=== PATIENT | female | born 1990 | race Caucasian/White ===

== ENCOUNTER 2017-03-06 06:15 | Outpatient (CLI) | payer SELFPAY ==
[~2017-03-06] VITALS: Ht 154.9 cm; Wt 51.8 kg
[2017-03-06 06:52] LABS: DAU SCREEN DISCLAIMER
[2017-03-06] MEDS ORDERED: TERBUTALINE 1 MG/ML, 1ML ONE (07:49)
[2017-03-06] MEDS ORDERED: TERBUTALINE 1 MG/ML, 1ML SQ ONE (08:00)
== END 2017-03-06 09:25 | disposition home or self-care (01) ==
LOC: LDOP 06:15
PROVIDERS: ATTEND Obstetrics & Gynecology
DX: O62.9 Abnormality of forces of labor, unspecified (principal); O60.03 Preterm labor without delivery, third trimester; Z3A.29 29 weeks gestation of pregnancy
CPT/HCPCS: 36415; 59025; 80307; 81003; 82731; 87086; 96372; 99201; J3105; G0463; G0479

== ENCOUNTER 2017-04-01 06:03 | Outpatient (CLI) | payer OTHER ==
[~2017-04-01 06:03] MED LIST: CLON0.5T PO; TRAZ100T15 PO
== END 2017-04-01 07:05 | disposition home or self-care (01) ==
LOC: LDOP 06:03
PROVIDERS: ATTEND Obstetrics & Gynecology
DX: O36.8130 Decreased fetal movements, third trimester, not applicable or unspecified (principal); O99.343 Other mental disorders complicating pregnancy, third trimester; F32.9 Major depressive disorder, single episode, unspecified; Z3A.32 32 weeks gestation of pregnancy
CPT/HCPCS: 59025; 81001; 99211; G0463

== ENCOUNTER 2017-04-28 15:50 | Emergency (ER) | payer OTHER ==
[~2017-04-28] VITALS: Ht 152.4 cm; Wt 58.0 kg
[2017-04-28] MEDS ORDERED: SODIUM CHLORIDE 0.9% 1,000 ML IV ONE (16:23)
[2017-04-28] MEDS ORDERED: SODIUM CHLORIDE FLUSH 10ML SYR IVF ONE (16:30)
[2017-04-28 16:50] LABS: HEMATOCRIT 27.1 % (34.6-47.8); HEMOGLOBIN 8.9 g/dL (11.7-16.4); WHITE BLOOD COUNT 7.9 x10^3/uL (3.4-10)
[2017-04-28 16:55] VITALS: BP 116/74
[2017-04-28 17:01] LABS: ASPARTATE AMINO TRANSFERASE 14 U/L (15-37); BLOOD UREA NITROGEN 5 mg/dL (7-18)
== END 2017-04-29 04:58 | disposition other institution (70) ==
LOC: ED 17:04
DX: O26.893 Other specified pregnancy related conditions, third trimester (principal); O99.013 Anemia complicating pregnancy, third trimester; R56.9 Unspecified convulsions; Z3A.37 37 weeks gestation of pregnancy
CPT/HCPCS: 36415; 71010; 80053; 81003; 82962; 83605; 85025; 85610; 85730; 93005

== ENCOUNTER 2017-04-28 17:17 | Inpatient (IN) | payer OTHER ==
[~2017-04-28] VITALS: Ht 152.4 cm; Wt 60.6 kg
[~2017-04-28 17:17] MED LIST changes: +DEXTROSE 50%, 50ML SYRINGE ONE; +METHYLERGONOVINE 0.2 MG/ML IM ONE; +VERAPAMIL 2.5 MG/ML, 2ML ONE
[2017-04-28] MEDS: LACTATED RINGERS 1,000 ML IV SCH (17:30)
[2017-04-28] MEDS ORDERED: LORazepam 2 MG/ML, 1ML ONE ×2 (17:35→17:50)
[2017-04-28] MEDS ORDERED: LORazepam 2 MG/ML, 1ML IVPush ONE ×2 (18:00)
[2017-04-28] MEDS ORDERED: LEVETIRACETAM 1,000 MG in SODIUM CHLORIDE 0.9% 100 ML IV ONE (18:30)
[2017-04-28] MEDS ORDERED: PLEASE ENTER HEIGHT AND WEIGHT MC SCH ×2 (18:30→19:00)
[2017-04-28] MEDS ORDERED: BETAMETHASONE 6 MG/ML, 5ML IM ONE ×2 (18:30→19:05)
[2017-04-28] MEDS ORDERED: LORazepam 2 MG/ML, 1ML IVPush PRN (18:30)
[2017-04-28 20:11] LABS: HIV 1&2 ANTIBODY SCREEN Nonreactive (Nonreactive); HIV-1 p24 ANTIGEN Nonreactive (Nonreactive)
[2017-04-28] MEDS ORDERED: PHENYTOIN SODIUM 1,000 MG in SODIUM CHLORIDE 0.9% 100 ML IV ONE (21:00)
[2017-04-28 21:14] LABS: HEMATOCRIT 25.6 % (34.6-47.8); HEMOGLOBIN 8.4 g/dL (11.7-16.4); WHITE BLOOD COUNT 8.3 x10^3/uL (3.4-10)
[2017-04-28 21:23] LABS: ASPARTATE AMINO TRANSFERASE 13 U/L (15-37); BLOOD UREA NITROGEN 3 mg/dL (7-18)
[2017-04-28] MEDS ORDERED: FLU VACC QS2017-18 (36MOS+) UP/PF 0.5 ML IM-VACC ONE (21:30)
[2017-04-28] MEDS: CEFTRIAXONE PMX 1GM/50ML 50 ML IV SCH (21:54)
[2017-04-28] MEDS ORDERED: FILTER 0.22 MICRON FOR PHENYTOIN IV PRN (22:00)
[2017-04-28] MEDS ORDERED: DEXTROSE 50%, 50ML VIAL IVPush ONE (23:30)
[2017-04-29] VITALS (7 sets, daily range): BP systolic 94–146; BP diastolic 57–92
[2017-04-29] MEDS: LACTATED RINGERS 1,000 ML IV SCH ×6 (01:26→13:57)
[2017-04-29] MEDS ORDERED: METOCLOPRAMIDE 5 MG/ML, 2ML ONE (02:16)
[2017-04-29] MEDS ORDERED: SODIUM CITRATE/CITRIC ACID 30 ML UDC ONE (02:16)
[2017-04-29] MEDS ORDERED: OXYTOCIN 30U/ 0.9% NaCL 500ML 500 ML ONE (02:17)
[2017-04-29] MEDS ORDERED: FENTANYL PF 250 MCG/5ML ONE (02:28)
[2017-04-29] MEDS ORDERED: LACTATED RINGERS 1,000 ML IV SCH ×2 (02:29→02:30)
[2017-04-29] MEDS ORDERED: OXYTOCIN 30U/ 0.9% NaCL 500ML 500 ML IV SCH (02:29)
[2017-04-29] MEDS ORDERED: METOCLOPRAMIDE 5 MG/ML, 2ML IV ONE (02:30)
[2017-04-29] MEDS ORDERED: SODIUM CITRATE/CITRIC ACID 30 ML UDC PO ONE (02:30)
[2017-04-29] MEDS ORDERED: LACTATED RINGERS 1,000 ML IVBOLUS ONE (02:30)
[2017-04-29 02:46] LABS: HEMATOCRIT 26.2 % (34.6-47.8); HEMOGLOBIN 8.8 g/dL (11.7-16.4); WHITE BLOOD COUNT 7.6 x10^3/uL (3.4-10)
[2017-04-29] MEDS ORDERED: NEWBORN KIT ONE (03:10)
[2017-04-29] MEDS ORDERED: EPHEDRINE 50 MG/ML, 1ML ONE (03:29)
[2017-04-29] MEDS ORDERED: CEFAZOLIN 1,000 MG ONE (03:29)
[2017-04-29] MEDS ORDERED: OXYTOCIN 10 UNITS/ML, 1ML ONE (03:29)
[2017-04-29] MEDS ORDERED: PHENYLEPHRINE 10 MG/ML ONE (03:29)
[2017-04-29] MEDS ORDERED: ONDANSETRON 2MG/ML, 2ML ONE (03:29)
[2017-04-29] MEDS ORDERED: WATER-INJECTION,STERILE 10 ML IV ONE (03:29)
[2017-04-29] MEDS ORDERED: LIDOCAINE-MPF 2% ,5ML ONE (03:29)
[2017-04-29] MEDS ORDERED: SUCCINYLCHOLINE 20 MG/ML, 10ML ONE (03:29)
[2017-04-29] MEDS ORDERED: PROPOFOL 10 MG/ML, 20ML ONE (03:29)
[2017-04-29] MEDS ORDERED: HYDROmorphone 2 MG/ML, 1ML ONE (03:30)
[2017-04-29] MEDS: OXYTOCIN 30U/ 0.9% NaCL 500ML 500 ML IV SCH ×2 (03:56→13:56)
[2017-04-29] MEDS ORDERED: ACETAMINOPHEN 325 MG TABLET PO PRN (04:00)
[2017-04-29] MEDS ORDERED: METOCLOPRAMIDE 5 MG/ML, 2ML IV PRN (04:00)
[2017-04-29] MEDS ORDERED: MISOPROSTOL 200 MCG TABLET PR PRN (04:00)
[2017-04-29] MEDS ORDERED: SIMETHICONE 80 MG CHEW TAB PO PRN (04:00)
[2017-04-29] MEDS ORDERED: BISACODYL 10 MG SUPP PR PRN (04:00)
[2017-04-29] MEDS ORDERED: ONDANSETRON 2MG/ML, 2ML IV PRN (04:00)
[2017-04-29] MEDS ORDERED: morphine SULFATE 10 MG/ML, 1ML IVPush PRN (04:00)
[2017-04-29] MEDS ORDERED: KETOROLAC 30 MG/1 ML IV PRN (04:00)
[2017-04-29 05:05] LABS: HEMATOCRIT 31.3 % (34.6-47.8); HEMOGLOBIN 10.2 g/dL (11.7-16.4); WHITE BLOOD COUNT 13.1 x10^3/uL (3.4-10)
[2017-04-29 05:12] LABS: BLOOD UREA NITROGEN 2 mg/dL (7-18)
[2017-04-29 05:15] LABS: ASPARTATE AMINO TRANSFERASE 19 U/L (15-37)
[2017-04-29] MEDS: KETOROLAC 30 MG/1 ML IV SCH ×3 (05:32→17:56)
[2017-04-29] MEDS: OXYcodone/APAP 5/325MG TABLET PO PRN ×4 (07:15→20:50)
[2017-04-29] MEDS: LEVETIRACETAM 750 MG in SODIUM CHLORIDE 0.9% 100 ML IV SCH ×2 (07:57→20:11)
[2017-04-29] MEDS: PRENATAL VIT/IRON/FA 1 EACH TABLET PO SCH (07:58)
[2017-04-29] MEDS ORDERED: BETAMETHASONE 6 MG/ML, 5ML IM ONE (08:00)
[2017-04-29] MEDS ORDERED: MAGNESIUM SULFATE PMX 4GM/100M 100 ML IVPB ONE (09:00)
[2017-04-29] MEDS: MEPERIDINE/PF 50 MG/ML IM PRN ×2 (10:06→15:00)
[2017-04-29] MEDS: DOCUSATE 100 MG CAPSULE PO PRN (20:50)
[2017-04-29] MEDS: ALBUTEROL SULFATE 2.5 MG/3 ML NPPB PRN (21:55)
[2017-04-29] MEDS: CEFTRIAXONE PMX 1GM/50ML 50 ML IV SCH (21:57)
[2017-04-30] VITALS: BP 109/76
[2017-04-30] MEDS: KETOROLAC 30 MG/1 ML IV SCH ×3 (00:03→11:30)
[2017-04-30] MEDS: OXYcodone/APAP 5/325MG TABLET PO PRN ×7 (01:34→23:21)
[2017-04-30 04:00] VITALS: BP 100/67
[2017-04-30 06:32] LABS: HEMATOCRIT 24.9 % (34.6-47.8); HEMOGLOBIN 8.2 g/dL (11.7-16.4); WHITE BLOOD COUNT 11.9 x10^3/uL (3.4-10)
[2017-04-30 06:36] LABS: ASPARTATE AMINO TRANSFERASE 26 U/L (15-37); BLOOD UREA NITROGEN 3 mg/dL (7-18)
[2017-04-30 06:45] VITALS: BP 111/75
[2017-04-30] MEDS: LEVETIRACETAM 750 MG in SODIUM CHLORIDE 0.9% 100 ML IV SCH (07:58)
[2017-04-30] MEDS: DOCUSATE 100 MG CAPSULE PO PRN ×2 (07:58→20:57)
[2017-04-30] MEDS: PRENATAL VIT/IRON/FA 1 EACH TABLET PO SCH (07:58)
[2017-04-30] MEDS ORDERED: ALBUTEROL/IPRATROPIUM 2.5MG/0.5MG, 3 ML ONE (11:38)
[2017-04-30] MEDS: ALBUTEROL SULFATE 2.5 MG/3 ML NPPB PRN (11:44)
[2017-04-30] MEDS: IBUPROFEN 800 MG TABLET PO PRN ×2 (11:54→20:57)
[2017-04-30 20:35] VITALS: BP 105/72
[2017-04-30] MEDS ORDERED: LEVETIRACETAM 500 MG TABLET PO SCH (21:00)
[2017-05-01] MEDS: OXYcodone/APAP 5/325MG TABLET PO PRN ×3 (03:40→12:03)
[2017-05-01 06:00] LABS: HEMATOCRIT 24.9 % (34.6-47.8); HEMOGLOBIN 8.2 g/dL (11.7-16.4); WHITE BLOOD COUNT 8.5 x10^3/uL (3.4-10)
[2017-05-01] MEDS: IBUPROFEN 800 MG TABLET PO PRN (06:10)
[2017-05-01 06:39] LABS: BLOOD UREA NITROGEN 6 mg/dL (7-18)
[2017-05-01 08:00] VITALS: BP 116/78
[2017-05-01] MEDS: DOCUSATE 100 MG CAPSULE PO PRN (08:10)
[2017-05-01] MEDS: PRENATAL VIT/IRON/FA 1 EACH TABLET PO SCH (08:10)
[2017-05-01] MEDS ORDERED: POTASSIUM CHLORIDE 20 MEQ TAB.ER.PRT PO ONE (10:00)
[2017-05-01] MEDS ORDERED: IBUP-1222 PO (11:24)
[2017-05-01] MEDS ORDERED: OXYC-302 PO (11:25)
[2017-05-01] MEDS ORDERED: ALBU1.25 NEB (11:28)
[2017-05-01] MEDS ORDERED: DIPH,PERTUSS(ACELL),TET VAC/PF NC IM-VACC ONE (12:30)
== END 2017-05-01 12:35 | disposition home or self-care (01) | DRG 765 ==
LOC: LDOP 17:17 → LDIP 18:20 → ICU 21:31 → LDIP 04-29 02:59 → ICU 04-29 04:02 → 2NW 04-29 10:49
PROVIDERS: ADMIT Obstetrics & Gynecology Female Pelvic Medicine and Reconstructive Surgery; ATTEND Obstetrics & Gynecology Female Pelvic Medicine and Reconstructive Surgery
PROC: 10D00Z1 Extraction of Products of Conception, Low, Open Approach (ICD-10-PCS; principal; 2017-04-29)
PROC: 0UB70ZZ Excision of Bilateral Fallopian Tubes, Open Approach (ICD-10-PCS; 2017-04-29)
PROC: 0T9B70Z Drainage of Bladder with Drainage Device, Via Natural or Artificial Opening (ICD-10-PCS; 2017-04-29)
DX: O34.211 Maternal care for low transverse scar from previous cesarean delivery (principal); E43 Unspecified severe protein-calorie malnutrition; O99.324 Drug use complicating childbirth; O75.89 Other specified complications of labor and delivery; E86.0 Dehydration; E86.1 Hypovolemia; F12.90 Cannabis use, unspecified, uncomplicated; F43.10 Post-traumatic stress disorder, unspecified; G40.901 Epilepsy, unspecified, not intractable, with status epilepticus; J44.9 Chronic obstructive pulmonary disease, unspecified; O23.40 Unspecified infection of urinary tract in pregnancy, unspecified trimester; O25.2 Malnutrition in childbirth; O76 Abnormality in fetal heart rate and rhythm complicating labor and delivery; O99.02 Anemia complicating childbirth; O99.284 Endocrine, nutritional and metabolic diseases complicating childbirth; O99.344 Other mental disorders complicating childbirth; O99.350 Diseases of the nervous system complicating pregnancy, unspecified trimester; O99.52 Diseases of the respiratory system complicating childbirth; Z30.2 Encounter for sterilization; Z3A.37 37 weeks gestation of pregnancy; Z37.0 Single live birth; Z87.820 Personal history of traumatic brain injury; Z68.26 Body mass index [BMI] 26.0-26.9, adult; Z23 Encounter for immunization
CPT/HCPCS: 36415; 70551; 80048; 80053; 81003; 82746; 82803; 83735; 84100; 84550; 85025; 86592; 86703; 86762; 86850; 86900; 86923; 87081; 87340; 87899; 88302; 90686; 90715; 94640; J0690; J0696; J0702; J1165; J1170; J1885; J1953; J2175; J2405; J2704; J3010; J3490; J7613; G0435; J0330; J2060; J2210; J2270; J2370; J2590; J2765; J3475; J7120